=== PATIENT | female | born 1955 | race Caucasian/White ===

== ENCOUNTER 2018-05-28 07:29 | Day surgery (SDC) | payer BC ==
[~2018-05-28] VITALS: Ht 170.2 cm; Wt 68.0 kg
[2018-05-28] MEDS ORDERED: CRESTOR5 MG PO (07:44)
--- NOTE | 2018-05-28 09:50 | NUR ---
[facility]28/18 0980 [facility] IN PACU SLEEPY WITH NO C/O'S. ABD SOFT. 0915 OXYGEN REMOVED. SATS 99% ON RA. 0930 SIPPING ON OJ. UP TO BATHROOM. VOIDED AND PASSING FLATUS. BACK AT BED GETTING DRESSED. 0945 DC INSTRUCTIONS GIVEN. LEFT VIA W/C WITH VOLUNTEER.
--- NOTE | 2018-05-29 09:47 | OR ---
[facility] [address] [place], [place] [address] Signed DATE OF OPERATION: 05/28/2018 SURGEON: Nathalie Scott MD PREOPERATIVE DIAGNOSIS: Colon screening. POSTOPERATIVE DIAGNOSIS: Normal colon to cecum. PROCEDURE: Total colonoscopy to cecum. ANESTHESIA: Intravenous sedation, fentanyl 100 mcg, Versed 5 mg. 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 She has no family history of colon cancer and is symptom free having no bleeding, diarrhea, or constipation. Her only medical problem is hypercholesterolemia for which she now takes Crestor. She was admitted at this time to undergo screening colonoscopy. She understands the risks of bleeding, infection, and perforation. FINDINGS: The prep was excellent. Complete colonoscopy was undertaken of the cecum without question. There was no sign of polyps, diverticular formation, colitis, or cancer. DESCRIPTION OF PROCEDURE: The patient was brought to the endoscopy suite and placed in lateral decubitus position given intravenous sedation to the point of slurred speech and nystagmus. Digital rectal examination was normal. She did have external hemorrhoidal changes. An Olympus video colonoscope was passed in the rectum and manipulated throughout the colon ultimately intubating the cecum itself. The ileocecal valve and appendiceal orifice were normal. The scope was withdrawn from that point. Examination was undertaken showing no sign of abnormality specifically no polyps, diverticular formation, colitis, or cancer. Retroflexed view was normal as well. Scope was removed and the patient was taken to recovery room in good condition. CONCLUDING DIAGNOSES: Electronically Signed By: NATHALIE SCOTT MD 05/29/18 0947 PATIENT NAME: ANISA AMOS OPERATIVE REPORT DATE OF : 59 REPORT #: [id number] PHYSICIAN: NATHALIE SCOTT MD PCP: OENL PEDRO MD REPORT IS CONFIDENTIAL AND NOT TO BE RELEASED WITHOUT AUTHORIZATION [facility] [address] [place], [place] [address] Signed 1. Normal colon to cecum. 2. External hemorrhoids. PLAN: Recommend high-fiber diet. We would recommend repeat colonoscopy in 10 years, sooner if clinically indicated. She will return to the ongoing care of Dr. Pedro. MD SHENG Duenas/SANDIEL /[id number] cc: Onel Pdero MD Copies: ONEL PEDRO MD ~ Electronically Signed By: NATHALIE SCOTT MD 05/29/18 0947 PATIENT NAME: ANISA AMOS OPERATIVE REPORT DATE OF : 59 REPORT #: [id number] PHYSICIAN: NATHALIE SCOTT MD PCP: ONEL PEDRO MD REPORT IS CONFIDENTIAL AND NOT TO BE RELEASED WITHOUT AUTHORIZATION
== END 2018-05-28 09:45 | disposition home or self-care (01) ==
LOC: OPS 07:29 → DS 07:29 → OPS 08:30
PROVIDERS: Surgery
PROC: 0DJD8ZZ Inspection of Lower Intestinal Tract, Via Natural or Artificial Opening Endoscopic (ICD-10-PCS; principal; 2018-05-28 08:30)
DX: Z12.11 Encounter for screening for malignant neoplasm of colon (principal); K64.4 Residual hemorrhoidal skin tags; E78.00 Pure hypercholesterolemia, unspecified
CPT/HCPCS: 99153; G0500; J2250; J3010; J7120